=== PATIENT | male | born 2000 | race Caucasian/White ===

== ENCOUNTER 2019-09-01 16:37 | Emergency (ER) | payer OTHER ==
[~2019-09-01] VITALS: Ht 180.3 cm; Wt 82.8 kg
[2019-09-01] MEDS ORDERED: NS 1,000 ML IV ONE ×2 (17:15→20:00)
[2019-09-01] MEDS ORDERED: ONDANSETRON 4MG/2ML VIAL (J2405) IV ONE (17:15)
[2019-09-01] MEDS ORDERED: PANTOPRAZOLE 40MG INJ (PROTONIX) (C9113) IV ONE (17:15)
[2019-09-01 17:42] LABS: BASO % 0.2 % (0.0-1.0); EOS % 0.2 % (0.0-3.0); HEMATOCRIT 45.8 % (42.0-52.0); HEMOGLOBIN 15.7 g/dl (13.5-17.5); LYMPH # 0.4 10^3/uL (1.5-5.0); LYMPH % 2.8 % (24.0-44.0); MEAN CORPUSCULAR HEMOGLOBIN 30.5 pg (27.0-33.0); MEAN CORPUSCULAR HGB CONC 34.3 g/dl (32.0-36.5); MEAN CORPUSCULAR VOLUME 88.9 fl (80.0-96.0); MONO # 0.9 10^3/uL (0.0-0.8); NEUTROPHILS # 11.6 10^3/uL (1.5-8.5); NEUTROPHILS % 89.3 % (36.0-66.0); PLATELET COUNT, AUTOMATED 234 10^3/uL (150-450); RED BLOOD COUNT 5.15 10^6/uL (4.30-6.10)
[2019-09-01 18:02] LABS: ALBUMIN 4.4 GM/DL (3.2-5.2); ALT/SGPT 22 U/L (12-78); BILIRUBIN,DIRECT 0.3 MG/DL (0.0-0.2); BLOOD UREA NITROGEN 21 MG/DL (7-18); CALCIUM LEVEL 9.3 MG/DL (8.5-10.1); CARBON DIOXIDE LEVEL 30 MEQ/L (21-32); CHLORIDE LEVEL 101 MEQ/L (98-107); CREATININE FOR GFR 1.33 MG/DL (0.70-1.30); GLUCOSE, FASTING 96 MG/DL (70-100); LIPASE 55 U/L (73-393); SODIUM LEVEL 136 MEQ/L (136-145)
[2019-09-01] MEDS ORDERED: ZOFR4TAB16 PO (20:45)
[2019-09-01 20:51] VITALS: BP 106/50
== END 2019-09-01 21:40 | disposition home or self-care (01) ==
LOC: M ED 16:37
DX: K52.9 Noninfective gastroenteritis and colitis, unspecified (principal)
CPT/HCPCS: 80048; 80076; 81001; 83690; 85025; 87086; 96361; 96374; 96375; 99284; C9113; J2405

== ENCOUNTER → 2020-01-27 | Outpatient (REF) | payer OTHER ==
[~2020-01-27] MED LIST: ZOFR4TAB16 PO
[2020-03-15 10:43] LABS: CHLAMYDIA DNA AMPLIFICATION NEGATIVE (NEGATIVE); GC DNA AMPLIFICATION NEGATIVE (NEGATIVE)
== END ==
LOC: M LAB REF 11:49
PROVIDERS: ATTEND Physician Assistant
DX: Z11.3 Encounter for screening for infections with a predominantly sexual mode of transmission (principal)

== ENCOUNTER 2021-01-30 13:39 | Emergency (ER) | payer OTHER ==
[~2021-01-30] VITALS: Ht 180.3 cm; Wt 84.1 kg
[2021-01-30 16:27] VITALS: BP 160/87
[2021-01-30] MEDS ORDERED: NAPROXEN 250 MG TAB PO ONE (17:20)
--- NOTE | 2021-01-30 19:18 | REP ---
INDICATION: R scrotal pain, pls look for hernia as well. COMPARISON: None. TECHNIQUE: Real-time sonographic evaluation of the testicles with Doppler FINDINGS: The right testicle measures 3.8 x 1.9 x 2.9 cm and the left testicle measures 4.6 x 2.1 x 2.9 cm. The testicular parenchymal echo pattern is normal bilaterally. The vascular pattern is normal bilaterally. The right testicular RI is 0.49 on the left is 0.67. There is no hydrocele or varicocele. IMPRESSION: Within normal limits <Electronically signed by Vito Patel > 01/30/211913
--- NOTE | 2021-01-30 19:19 | REP ---
INDICATION: R scrotal pain, pls look for hernia as well. COMPARISON: None. TECHNIQUE: Real-time sonographic evaluation of the right inguinal region FINDINGS: There are no cystic or solid masses. There are no abnormalities. IMPRESSION: Negative exam. A negative ultrasound examination cannot rule out an inguinal hernia since they spontaneously reduce. <Electronically signed by Vito Patel > 01/30/21 [id number]
== END 2021-01-30 19:31 | disposition home or self-care (01) ==
LOC: M ED 13:39
DX: N50.811 Right testicular pain (principal)